=== PATIENT | female | born 1995 | race Caucasian/White ===

== ENCOUNTER 2022-05-07 17:06 | Emergency (ER) | payer OTHER ==
[2022-05-07] MEDS ORDERED: PEPCID40 MG PO (19:09)
[2022-05-07] MEDS ORDERED: IBUPROFEN800 MG PO (19:09)
== END 2022-05-07 19:35 | disposition home or self-care (01) ==
LOC: FER 17:06
DX: J02.9 Acute pharyngitis, unspecified (principal); K21.9 Gastro-esophageal reflux disease without esophagitis
CPT/HCPCS: 87880; 99282